=== PATIENT | male | born 1985 | race Caucasian/White ===

== ENCOUNTER 2017-11-23 19:27 | Inpatient (IN) ==
[2017-11-23] MEDS ORDERED: *HR* FentaNYL (PF) 100 MCG/2 ML VIAL IVP ONE (20:30)
[2017-11-23] MEDS ORDERED: Levofloxacin 750 MG/150 ML 750 MG/150 ML BAG IVPB ONE (20:30)
--- NOTE | 2017-11-23 20:33 | Emergency Department Note ---
Disposition Clinical Impression: Epididymo-orchitis Disposition: Admitted As Inpatient Condition: Undetermined General Adult HPI - General Chief complaint: ED Urogenital-Male Stated complaint: surgical site problem to testicle Time Seen by Provider: 11/23/17 20:12 Source: patient Mode of arrival: private vehicle Limitations: no limitations Nursing Notes Reviewed: Yes Vital Signs Reviewed: Yes - History of Present Illness HPI Narrative: 31-year-old patient presents emergency department for evaluation of scrotal pain and swelling after having a hydrocele surgery [address] Tobias through urology. Patient states initial relief of symptoms followed by increased swelling. He was seen by his urologist yesterday on 11/22 due to increased swelling, it is attributed to surgical swelling that was normal. Today however patient has had even more swelling with increased pain today came to the emergency department this morning for evaluation where he saw Dr. James. During workup with Dr. James patient was noted to have an elevated white blood cell count, and epididymal orchitis. Dr. James spoke with urologist Dr. Good who offered a choice of admission and urological service is alert to be discharged with by mouth antibiotics and follow up with urology and primary care provider. 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 Patient states since he left here this morning he has had a considerable amount of pain, he has used a scrotal support, took one of the Percocets that was ordered for him by urological services early this morning with minimal effectiveness. He does state that area has had minimal amount of drainage which is an increase from earlier this morning with Dr. James. Patient denies any other change in assessment since he was seen by Dr. James this morning. Denies fever, chills, nausea, vomiting, diarrhea, difficulty breathing, chest pain. Onset (ago): day(s) Location: other (Scrotum) Pain Severity: severe Pain Scale: 10 Consistency: constant Treatments Prior to Arrival: other - Related Data Home Medications Medication Instructions Recorded Confirmed Atenolol [Tenormin] 50 mg PO HS 11/17/17 11/17/17 Cyclobenzaprine [Flexeril] 10 mg PO HS PRN 11/17/17 11/17/17 Ibuprofen 800 mg PO TID PRN 11/17/17 11/17/17 Omeprazole [PriLOSEC] 40 mg PO DAILY 11/17/17 11/17/17 OxyCODONE/APAP 10/325 [Percocet 1 tab PO Q6H PRN 11/17/17 11/17/17 10/325 MG] Pregabalin [Lyrica] 100 mg PO TID 11/17/17 11/17/17 Previous Rx's Medication Instructions Recorded HYDROcodone/Acet 5/325 mg [Seibert 2 tab PO Q4H PRN 2 Days #12 tablet 11/17/17 5-325 mg] levoFLOXacin [Levaquin] 750 mg PO DAILY #9 tablet 11/23/17 Allergies Allergy/AdvReac Type Severity Reaction Status Date / Time No Known Allergies Allergy Verified 11/23/17 07:46 All systems ED: reviewed and negative except as stated. Review of Systems: As Per [facility] Past Medical History - Past Medical History Attestation: Yes The following information was validated with the patient. Source: patient Medical history: Reports: GERD, hyperlipidemia, hypertension, other Psychiatric history: Reports: no psych history - Social History Smoking Status: Current some day smoker Smokeless Tobacco Status: Yes Alcohol use: Reports: none Drug use: Reports: none Physical Exam - General Limitations: no limitations General appearance: alert, in no apparent distress - Head Head exam: atraumatic, normocephalic, normal inspection - Chest Chest inspection: Present: normal inspection, symmetric chest wall rise - Male exam: Present: scrotal swelling, other (Left testicle with surgical scar, right testicle with surgical drain with minimal amount of serous increase fluid) Scrotal exam: testicular tenderness: bilateral, testicular swelling: bilateral, testicular mass: right, epididymal tenderness: bilateral - Neurological Exam Neurological exam: Present: alert, oriented X3 - Psychiatric Psychiatric exam: Present: normal affect, normal mood - Skin Skin exam: Present: warm, dry, intact, normal color Course Course Narrative: 31-year-old male who is well-developed in no apparent distress. Respirations are easy and even. He ambulates with a steady gait was slightly bowed legs. Bilateral testicle swelling with right greater than left. Left with a we will approximate a surgical scar that is closed with sutures without signs of infection, surgical drain tube in place draining minimal amount of serosanguineous drainage. Right Teste the firm, bilateral testes tender with touch. Patient is afebrile, tachycardic most likely related to pain. We will treat pain and provide first dose of IV antibiotic preparation for [place] to hospital under urological services. - Consultations Consultation #1: Spoke with urologist Dr. Good who states initiated still remains at choice for patient as by mouth Levaquin versus IV Levaquin would both be effective. Dr. Good states the only benefit to admission would be bed rest, IV medication as diagnosis as are nonsurgical. Spoke with Dr. Good regarding patient desired to be admitted as this would help him not feel like he needs to be up and working, possibly stressing the situation. Dr. Good states patient to be admitted to hospital services. We do not need any new labs at this time his labs are from 0835 this morning. Time: 20:47 Vital Signs Temperature 98.3 F 11/23/17 19:28 Pulse Rate 121 11/23/17 19:28 Respiratory Rate 18 11/23/17 19:28 Blood Pressure 136/84 11/23/17 19:28 O2 Sat by Pulse Oximetry 98 11/23/17 19:28 Temperature 98.3 F 11/23/17 19:28 Pulse Rate 121 11/23/17 19:28 Respiratory Rate 18 11/23/17 19:28 Blood Pressure 136/84 11/23/17 19:28 O2 Sat by Pulse Oximetry 98 11/23/17 19:28 Oxygen Delivery Oxygen Delivery Room Air
--- NOTE | 2017-11-23 21:43 | Emergency Department Note ---
Disposition Clinical Impression: Epididymo-orchitis Disposition: Admitted As Inpatient Condition: Undetermined Forms: ED Satisfaction Letter General Adult HPI - General Chief complaint: ED Urogenital-Male Stated complaint: surgical site problem to testicle Time Seen by Provider: 11/23/17 20:12 Source: patient Mode of arrival: private vehicle Limitations: no limitations Nursing Notes Reviewed: Yes Vital Signs Reviewed: Yes - History of Present Illness Location: other (Scrotum) Pain Scale: 5 Treatments Prior to Arrival: other - Related Data Home Medications Medication Instructions Recorded Confirmed Atenolol [Tenormin] 100 mg PO HS 11/17/17 11/23/17 Cyclobenzaprine [Flexeril] 10 mg PO HS PRN 11/17/17 11/23/17 Ibuprofen 800 mg PO TID PRN 11/17/17 11/23/17 Omeprazole [PriLOSEC] 40 mg PO DAILY 11/17/17 11/23/17 OxyCODONE/APAP 10/325 [Percocet 1 tab PO Q6H PRN 11/17/17 11/23/17 10/325 MG] Pregabalin [Lyrica] 100 mg PO TID 11/17/17 11/23/17 Ranitidine HCl [Heartburn Relief] 150 mg PO DAILY 11/23/17 11/23/17 Allergies Allergy/AdvReac Type Severity Reaction Status Date / Time No Known Allergies Allergy Verified 11/23/17 07:46 Past Medical History - Past Medical History Medical history: Reports: GERD, hyperlipidemia, hypertension, other Psychiatric history: Reports: no psych history - Social History Smoking Status: Current some day smoker Smokeless Tobacco Status: Yes Alcohol use: Reports: none Drug use: Reports: none Physical Exam - General Limitations: no limitations General appearance: alert, in no apparent distress Course Vital Signs Temperature 98.3 F 11/23/17 19:28 Pulse Rate 121 11/23/17 19:28 Respiratory Rate 18 11/23/17 19:28 Blood Pressure 136/84 11/23/17 19:28 O2 Sat by Pulse Oximetry 98 11/23/17 19:28 Temperature 98.3 F 11/23/17 19:28 Pulse Rate 103 11/23/17 21:15 Respiratory Rate 18 11/23/17 21:15 Blood Pressure 137/83 11/23/17 21:15 O2 Sat by Pulse Oximetry 98 11/23/17 21:15 Oxygen Delivery Oxygen Delivery Room Air Attestation Statement - Attestation Attestation: I, Cuong Mancia MD, personally evaluated this patient and discussed their management with the resident physician. I reviewed the resident's note and agree with the documented findings, medical decision making, and plan of care. Patient is a 31-year-old male who had left hydrocele surgery 6 days ago and presents tonight complaining of increasing pain and swelling in the scrotum over the past 4 days. He has been able to urinate but some dysuria. No fever. He was seen earlier today in the emergency department and had labs and an ultrasound which was suggestive of epididymoorchitis. He elected to try outpatient antibiotics but returns tonight complaining of increasing pain and swelling. On examination patient is a well-developed obese male in no acute distress. He is alert and oriented 3. There is no cyanosis or diaphoresis. Breath sounds are clear and equal bilaterally. Heart regular with a mild tachycardia. Abdomen soft and nontender with normal bowel sounds. Few scrotal swelling and tenderness. The mid-level provider discussed with the urologist network operations specialist, Dr. Good, and he accepted admission of the patient to the urology service.
[2017-11-23] MEDS ORDERED: Naloxone 0.4 MG/ML INJ IVP PRN (22:16)
[2017-11-23] MEDS ORDERED: Ondansetron 4 MG/2 ML VIAL IVP PRN (22:16)
--- NOTE | 2017-11-23 22:23 | Urology History & Physical ---
Date of Encounter: 11/24/17 Time of Encounter: 22:20 Assessment and Plan (1) Orchitis and epididymitis Current Visit: Yes Status: Acute I feel that a majority of the scrotal swelling is scrotal wall edema. no evidence of hematoma, recurrance hydrocele or abscess. plan - start rocephin BID, bed rest. strict scrotal rest. monitor exam for improvement. no obvious surgical intervention at this time. will discuss with Jatinder. consider removal of drain. History of Present Illness Chief complaint: scrotal swelling HPI: Mr. Marin is a 31 year old male s/p recent hydrocelectomy by Dr Tobias. Increasing pain and swelling. no fever. 2 ER visits within 12 hours. ultrasound shows large scrotal wall edema and epididymorchitis. no troule urinating. minimal drain output. Past Med Surg Social Fam HX - Past Medical History Medical history: GERD, hyperlipidemia, hypertension, other Psychiatric history: no psych history - Social History Smoking Status: Current some day smoker Smokeless Tobacco Status: Yes Alcohol use: none Drug use: none Medications and Allergies Atenolol [Tenormin] 100 mg PO HS 11/17/17 [History] Cyclobenzaprine [Flexeril] 10 mg PO HS PRN 11/17/17 [History] Ibuprofen 800 mg PO TID PRN 11/17/17 [History] Omeprazole [PriLOSEC] 40 mg PO DAILY 11/17/17 [History] OxyCODONE/APAP 10/325 [Percocet 10/325 MG] 1 tab PO Q6H PRN 11/17/17 [History] Pregabalin [Lyrica] 100 mg PO TID 11/17/17 [History] Ranitidine HCl [Heartburn Relief] 150 mg PO DAILY 11/23/17 [History] 3 Allergy/AdvReac Type Severity Reaction Status Date / Time No Known Allergies Allergy Verified 11/23/17 07:46 Review of Systems - Constitutional no fever(s) - EENT Nose, mouth and throat: no dizziness, no sore throat - Cardiovascular no chest pain - Respiratory no cough - Gastrointestinal abdominal pain, nausea, no vomiting - Genitourinary scrotal swelling - Musculoskeletal back pain - Integumentary swelling, no erythema - Neurological no confusion - Psychiatric no anxiety - Hematologic/Lymphatic no easy bleeding - Allergic/Immunologic no throat swelling Exam Initial Vital Signs Temp Pulse Resp BP Pulse Ox 98.3 F 121 18 136/84 98 11/23/17 19:28 11/23/17 19:28 11/23/17 19:28 11/23/17 19:28 11/23/17 19:28 - General physical appearance Present: well developed, no distress - Eyes Present: PERRL, conjunctiva is clear - ENT Present: normal nares - Neck Present: no masses - Respiratory Present: normal respiratory effort - Cardiovascular Cardiovascular exam IM: RRR - Abdomen Abdomen: Present: soft. Absent: suprapubic tenderness - Neurologic Present: normal coordination. Absent: disoriented, confused - Additional Findings large scrotal edema. firmer skin on left. soft on right. incision intact with scant drainage. no purulence. drain still in place with no drainage. testicle not palpable bc of edema. Urology Results - Labs All other labs normal.
[2017-11-23] MEDS: Ketorolac 15 MG/ML VIAL IVP PRN (22:40)
[2017-11-23] MEDS: *HR* HYDROcodone/Acet 5/325 mg TABLET PO PRN (22:41)
[2017-11-23] MEDS: *HR* OxyCODONE Immed Rel 5 MG TABLET PO PRN (23:25)
[2017-11-24] MEDS: *HR* HYDROcodone/Acet 5/325 mg TABLET PO PRN ×3 (04:44→20:40)
[2017-11-24] MEDS: Ketorolac 15 MG/ML VIAL IVP PRN ×3 (04:44→20:40)
[2017-11-24] MEDS: *HR* OxyCODONE Immed Rel 5 MG TABLET PO PRN ×2 (06:03→15:12)
[2017-11-24 07:58] LABS: Basophils % 0.2 %; Eosinophils # 0.1 K/mcL (0.0-0.6); Eosinophils % 0.8 %; Hematocrit 37.3 % (37.5-50.1); Hemoglobin 12.3 g/dL (12.9-16.9); Immature Granulocytes % 0.5 % (0-4); Lymphocytes % 6.5 %; Mean Corpuscular Hemoglobin 28.8 pg (28.0-33.3); Mean Corpuscular Volume 87.4 fL (83.0-100.0); Mean Platelet Volume 10.6 fL (9.4-12.4); Monocytes # 1.7 K/mcL (0.0-1.3); Monocytes % 10.6 %; Platelet Count 219 K/mcL (140-400); Red Blood Count 4.27 M/mcL (4.19-5.50); Red Cell Distribution Width 13.1 % (11.5-14.5); Segmented Neutrophils % 81.4 %
[2017-11-24] MEDS: cefTRIAXone 1,000 MG in Water for inj. (sterile) 20 ML 10 ML IVP SCH ×2 (08:37→20:37)
[2017-11-24] MEDS ORDERED: cefTRIAXone 1,000 MG in Water for inj. (sterile) 20 ML 10 ML IVP SCH (09:00)
[2017-11-24] MEDS: *HR* HYDROmorphone 2 MG TABLET PO PRN ×2 (09:59→16:56)
[2017-11-24] MEDS: Pregabalin 50 MG CAPSULE PO SCH (20:39)
[2017-11-25] MEDS: *HR* OxyCODONE Immed Rel 5 MG TABLET PO PRN ×3 (04:07→21:28)
--- NOTE | 2017-11-25 07:11 | Urology Progress Note ---
Date of Encounter: 11/25/17 Time of Encounter: 07:08 - Assessment and Plan (1) Orchitis and epididymitis Current Visit: Yes Status: Acute Assessment and plan: continue iv abx. scrotal elevation. no indication for I and D at this time. Progress Note Narrative: patient seen. still with some scrotal pain. no fevers. Objective Initial Vital Signs Temp Pulse Resp BP Pulse Ox 98.3 F 121 18 136/84 98 11/23/17 19:28 11/23/17 19:28 11/23/17 19:28 11/23/17 19:28 11/23/17 19:28 - General physical appearance Present: well developed, well nourished - Respiratory Present: normal expansion, normal respiratory effort - Abdomen Present: soft - Genitourinary Present: other (scrotal swelling and edema improved. no fluctuance noted. drain removed. ) - Labs 11/24/17 07:31 Consult Discharge Plan - Plan Referrals: Nani Blankenship [Primary Care Provider] -
[2017-11-25] MEDS: Pregabalin 50 MG CAPSULE PO SCH ×3 (09:28→21:30)
[2017-11-25] MEDS: cefTRIAXone 1,000 MG in Water for inj. (sterile) 20 ML 10 ML IVP SCH ×2 (09:28→21:30)
[2017-11-25] MEDS: *HR* HYDROmorphone 2 MG TABLET PO PRN (09:38)
[2017-11-25] MEDS: Ketorolac 15 MG/ML VIAL IVP PRN (13:48)
[2017-11-26] MEDS: *HR* OxyCODONE Immed Rel 5 MG TABLET PO PRN ×4 (03:42→22:49)
[2017-11-26] MEDS: Ketorolac 15 MG/ML VIAL IVP PRN ×4 (03:44→22:49)
--- NOTE | 2017-11-26 07:16 | Urology Progress Note ---
Date of Encounter: 11/26/17 Time of Encounter: 07:14 - Assessment and Plan (1) Orchitis and epididymitis Current Visit: Yes Status: Acute Assessment and plan: will recheck labs and UA. continue current management of ABX, bedrest. Progress Note Narrative: pt still having pain. very little improvement. states urine "lopez" and "smells" Looks dark Objective Initial Vital Signs Temp Pulse Resp BP Pulse Ox 98.3 F 121 18 136/84 98 11/23/17 19:28 11/23/17 19:28 11/23/17 19:28 11/23/17 19:28 11/23/17 19:28 - Additional Exam still with significant swelling of scrotum. no appreciable change from yesterday. - Labs 11/24/17 07:31 Consult Discharge Plan - Plan Referrals: Nani Blankenship [Primary Care Provider] -
[2017-11-26] MEDS: Pregabalin 50 MG CAPSULE PO SCH ×3 (07:59→20:17)
[2017-11-26] MEDS: *HR* HYDROcodone/Acet 5/325 mg TABLET PO PRN ×3 (07:59→20:17)
[2017-11-26] MEDS: cefTRIAXone 1,000 MG in Water for inj. (sterile) 20 ML 10 ML IVP SCH ×2 (08:00→20:15)
[2017-11-26 08:12] LABS: Basophils % 0.2 %; Eosinophils # 0.2 K/mcL (0.0-0.6); Eosinophils % 1.2 %; Hematocrit 34.8 % (37.5-50.1); Immature Granulocytes % 0.8 % (0-4); Lymphocytes # 1.5 K/mcL (0.6-4.6); Lymphocytes % 11.6 %; Mean Corpuscular HGB Conc 34.5 g/dL (31.6-35.5); Monocytes % 7.8 %; Neutrophils # 10.4 K/mcL (1.6-8.9); Platelet Count 286 K/mcL (140-400); Red Cell Distribution Width 12.8 % (11.5-14.5); Segmented Neutrophils % 78.4 %
[2017-11-26 09:05] LABS: BUN/Creatinine Ratio 26 (6-26); Blood Urea Nitrogen 21 mg/dL (6-20); Calcium 9.2 mg/dL (8.6-10.3); Carbon Dioxide 27 mEq/L (23-29); Chloride 104 mEq/L (98-107); Glucose 101 mg/dL (70-105); Osmolality,Calculated 289 (280-300); Potassium 4.1 mEq/L (3.5-5.1); Sodium 138 mEq/L (136-145); eGFR For African Americans > 60 (> 60); eGFR For Non-African Americans > 60 (> 60)
[2017-11-27] MEDS: *HR* OxyCODONE Immed Rel 5 MG TABLET PO PRN (05:46)
[2017-11-27] MEDS: Ketorolac 15 MG/ML VIAL IVP PRN (05:49)
[2017-11-27 06:09] LABS: Bilirubin,Urine Negative (Negative); Blood,Urine Negative (Negative); Clarity,Urine Clear (Clear); Color,Urine Yellow (Yellow); Glucose,Urine (UA) Normal (Normal); Ketones,Urine Negative (Negative); Leukocyte Esterase,Urine Negative (Negative); Nitrite,Urine Negative (Negative); PH,Urine 6.5 pH Units (5.0-8.0); Protein,Urine Trace mg/dL (Neg-Trace); Specific Gravity,Urine > 1.030 (1.010-1.025); Urobilinogen,Urine Normal (Normal)
[2017-11-27 06:11] LABS: Bacteria,Urine None Seen per hpf (None-Few); Hyaline Casts,Urine None Seen per lpf (None-Few); RBC,Urine 0-3 per hpf (0-3); Squamous Epithelial Cell,Urine None Seen per lpf (None-Few); WBC,Urine 0-3 per hpf (0-3)
[2017-11-27 07:23] VITALS: BP 132/81
--- NOTE | 2017-11-27 08:06 | Discharge Summary ---
Date of Encounter: 11/27/17 Time of Encounter: 08:11 - Discharge Diagnosis (1) Orchitis and epididymitis Priority: Primary Status: Acute Comments: slowly resolving. based on labs and exam. ok for outpatient management - Hospital Course Hospital course: Mr. Marin is a 31 year old male admitted with epididymitis/orchitis. WBC at admission 13. down to 11. no fever. BMP normal. pain control and exam slowly improving. we have elected for outpatient management with levaquin and bed rest. will follow closely next week with [facility] - Time Spent with Patient Total time spent providing and/or coordinating discharge services: Labs on day of discharge: Labs from last 24 hours 11/27/17 11/26/17 11/26/17 05:50 07:54 07:54 WBC 13.2 H RBC 4.00 L Hgb 12.0 L Hct 34.8 L MCV 87.0 MCH 30.0 MCHC 34.5 RDW 12.8 Plt Count 286 MPV 10.0 Immature Gran % 0.8 Seg Neutrophils % 78.4 Lymphocytes % 11.6 Monocytes % 7.8 Eosinophils % 1.2 Basophils % 0.2 Neutrophils # 10.4 H Lymphocytes # 1.5 Monocytes # 1.0 Eosinophils # 0.2 Basophils # 0.0 Sodium 138 Potassium 4.1 Chloride 104 Carbon Dioxide 27 BUN 21 H Creatinine 0.80 Est GFR ( Amer) > 60 Est GFR (Non-Af Amer) > 60 BUN/Creatinine Ratio 26 Glucose 101 Calculated Osmolality 289 Calcium 9.2 Urine Color Yellow Urine Clarity Clear Urine pH 6.5 Ur Specific [place] > 1.030 H Urine Protein Trace Urine Glucose (UA) Normal Urine Ketones Negative Urine Blood Negative Urine Nitrite Negative Urine Bilirubin Negative Urine Urobilinogen Normal Ur Leukocyte Esterase Negative Urine Microscopic RBC 0-3 Urine Microscopic WBC 0-3 Ur Squamous Epith Cells None Seen Urine Bacteria None Seen Hyaline Casts None Seen Ur Culture Indicated? NO - Discharge Medications Prescriptions: Levofloxacin [Levaquin] 750 mg PO DAILY #14 tablet OxyCODONE/APAP 10/325 [Percocet 10/325 MG] 1 tab PO Q6H PRN 7 Days #30 tablet PRN Reason: Mild To Moderate Pain Home Medications: Atenolol [Tenormin] 100 mg PO DAILY 11/17/17 [History] Ibuprofen 800 mg PO TID PRN 11/17/17 [History] Omeprazole [PriLOSEC] 40 mg PO DAILY 11/17/17 [History] Ranitidine HCl [Heartburn Relief] 150 mg PO BID PRN 11/23/17 [History] Pregabalin [Lyrica] 100 mg PO TID 11/24/17 [History] Levofloxacin [Levaquin] 750 mg PO DAILY #14 tablet 11/27/17 [Rx] Omeprazole [PriLOSEC] 40 mg PO DAILY@0730 capsule. 11/27/17 [Rx] OxyCODONE/APAP 10/325 [Percocet 10/325 MG] 1 tab PO Q6H PRN 7 Days #30 tablet [Rx] Allergies/Adverse Reactions: 3 Allergy/AdvReac Type Severity Reaction Status Date / Time No Known Allergies Allergy Verified 11/23/17 07:46 Date of admission: 11/23/17 22:04 Primary care physician: Nani Blankenship Discharging clinician: Justin Good Anticipated date of discharge: 11/27/17 Exam Initial Vital Signs Temp Pulse Resp BP Pulse Ox 98.3 F 121 18 136/84 98 11/23/17 19:28 11/23/17 19:28 11/23/17 19:28 11/23/17 19:28 11/23/17 19:28 - General physical appearance Present: no distress - Additional Findings still with scrotal swelling. small improvement. firm left hemiscrotum. no purulence. - Patient Status Disposition: Home, Self-Care Condition: Good Functional capacity at discharge: independent ambulation Overall status at discharge: patient is not back to baseline - Discharge Instructions Follow Up With: Nani Blankenship [Primary Care Provider] - Casey Tobias MD [Partnered Physician] - (December 01 with Jatinder. ) Additional Instructions: pt needs mostly bed rest. small amount ambulating OK. keep scrotum well supported at all times. cool compress daily. OK to take ibuprofen. low grade fever is possible. call or go to ER for fever >101. - Diet and Activity Activity: other Diet: advance to your usual diet
== END 2017-11-27 09:58 | disposition home or self-care (01) | DRG 501 ==
LOC: EMEROO 19:27 → 3ANU 19:27
PROVIDERS: ADMIT Urology; ATTEND Urology

== ENCOUNTER 2022-01-20 16:11 | Inpatient (IN) ==
[2022-01-20 17:47] LABS: Basophils # 0.1 K/mcL (0.0-0.2); Basophils % 0.7 %; Eosinophils # 0.1 K/mcL (0.0-0.6); Eosinophils % 0.9 %; Hematocrit 44.7 % (37.5-50.1); Hemoglobin 14.8 g/dL (12.9-16.9); Immature Granulocytes % 0.9 % (0-4); Lymphocytes # 1.2 K/mcL (0.6-4.6); Lymphocytes % 11.7 %; Mean Corpuscular HGB Conc 33.1 g/dL (31.6-35.5); Mean Corpuscular Hemoglobin 31.4 pg (28.0-33.3); Mean Corpuscular Volume 94.7 fL (83.0-100.0); Mean Platelet Volume 10.5 fL (9.4-12.4); Monocytes # 0.8 K/mcL (0.0-1.3); Monocytes % 7.9 %; Neutrophils # 8.2 K/mcL (1.6-8.9); Platelet Count 254 K/mcL (140-400); Red Blood Count 4.72 M/mcL (4.19-5.50); Red Cell Distribution Width 13.3 % (11.5-14.5); Segmented Neutrophils % 77.9 %; White Blood Count 10.4 K/mcL (4.3-11.1)
[2022-01-20 18:10] LABS: BUN/Creatinine Ratio 11 (6-26); Blood Urea Nitrogen 11 mg/dL (6-20); Calcium 9.6 mg/dL (8.6-10.3); Carbon Dioxide 26 mEq/L (23-29); Chloride 101 mEq/L (98-107); Glucose 109 mg/dL (70-105); Osmolality,Calculated 288 (280-300); Potassium 3.6 mEq/L (3.5-5.1); Sodium 139 mEq/L (136-145); Troponin I 0.04 ng/mL (< 0.04); eGFR For African Americans > 60 (> 60); eGFR For Non-African Americans > 60 (> 60)
[2022-01-20] MEDS ORDERED: Iopamidol - 370 500 ML MLS IVP ONE (18:23)
[2022-01-20] MEDS ORDERED: *HR* Labetalol 20 MG/4 ML SYRINGE IVP ONE (18:24)
[2022-01-20 18:57] LABS: Alanine Aminotransferase 91 Units/L (7-52); Albumin 4.5 g/dL (3.5-5.7); Albumin/Globulin Ratio 1.7 (1.1-2.2); Alkaline Phosphatase 90 Units/L (34-104); Aspartate Amino Transferase 43 Units/L (13-39); Bilirubin,Direct 0.1 mg/dL (0.0-0.2); Bilirubin,Indirect 0.6 mg/dL (0.0-1.0); Bilirubin,Total 0.7 mg/dL (0.3-1.0); Globulin 2.6 g/dL (2.4-3.5); Lipase 12 Units/L (11-82); Total Protein 7.1 g/dL (6.4-8.9)
[2022-01-20] MEDS: Nitroglycerin 0.4 MG TAB.SUBL SL PRN ×2 (18:57→19:02)
[2022-01-20] MEDS ORDERED: Aspirin 81 MG TAB.CHEW PO ONE (19:38)
[2022-01-20] MEDS ORDERED: *HR* Heparin 5,000 UNIT/ML VIAL IVP ONE (19:53)
[2022-01-20] MEDS ORDERED: *HR* Ticagrelor 90 MG TABLET ONE (19:53)
[2022-01-20] MEDS ORDERED: *HR* Heparin 5,000 UNIT/ML VIAL ONE (19:53)
[2022-01-20] MEDS ORDERED: *HR* Heparin 5,000 UNIT/ML VIAL IVP PRN ×2 (19:53)
[2022-01-20] MEDS ORDERED: *HR* Ticagrelor 90 MG TABLET PO ONE (19:53)
[2022-01-20] MEDS ORDERED: 0.9 % Sodium Chloride 1,000 ML ONE (19:54)
[2022-01-20] MEDS ORDERED: *HR* Heparin 10,000 UNIT/10 ML VIAL ONE (20:17)
[2022-01-20] MEDS ORDERED: 0.9 % Sodium Chloride 2,000 ML ONE (20:17)
[2022-01-20] MEDS ORDERED: Nitroglycerin 1,000 MCG/5 ML VIAL IV ONE (20:17)
[2022-01-20] MEDS ORDERED: Iopamidol - 370 200 ML INFUS..BTL ONE ×2 (20:17→20:50)
[2022-01-20] MEDS ORDERED: Heparin 1,000 UNITS/500 mL 500 ML ONE (20:17)
[2022-01-20 20:23] LABS: Heparin anti-factor XA UFH 0.04 IU/mL (0.30-0.70)
[2022-01-20 20:24] LABS: Prothrombin Time 11.3 Seconds (9.4-12.1)
[2022-01-20] MEDS ORDERED: *HR* Midazolam HCl 2 MG/2 ML VIAL ONE (20:25)
[2022-01-20] MEDS ORDERED: *HR* FentaNYL (PF) 100 MCG/2 ML VIAL ONE (20:25)
[2022-01-20] MEDS ORDERED: Tirofiban 12.5 MG/250ML 12.5 MG/250 ML BAG ONE (20:48)
[2022-01-20] MEDS ORDERED: Furosemide 40 MG/4 ML VIAL ONE (21:15)
[2022-01-20] MEDS: Tirofiban 12.5 MG/250ML 12.5 MG/250 ML BAG IVC SCH (21:30)
[2022-01-20] MEDS ORDERED: Perflutren Lipid Microsphere 1.3 ML in 0.9 % Sodium Chloride 8.7 ML IVP PRN (21:31)
[2022-01-20] MEDS: Heparin 25,000UNIT/250ML 1/2NS 25,000 UNIT/250 ML IV.SOLN IVC SCH (22:22)
[2022-01-21] MEDS ORDERED: *HR* LORazepam 2 MG/ML VIAL IVP PRN ×3 (00:45→10:46)
[2022-01-21] MEDS ORDERED: *HR* Metoprolol 5 MG/5 ML VIAL IVP ONE (00:45)
[2022-01-21] MEDS: Tirofiban 12.5 MG/250ML 12.5 MG/250 ML BAG IVC SCH (03:30)
[2022-01-21 05:23] LABS: VBG Ionized Calcium 1.03 mmol/L (1.15-1.35)
[2022-01-21 05:45] LABS: Basophils % 0.4 %; Eosinophils # 0.1 K/mcL (0.0-0.6); Eosinophils % 0.7 %; Hematocrit 41.9 % (37.5-50.1); Hemoglobin 13.7 g/dL (12.9-16.9); Immature Granulocytes % 0.7 % (0-4); Lymphocytes # 1.4 K/mcL (0.6-4.6); Lymphocytes % 12.8 %; Mean Corpuscular HGB Conc 32.7 g/dL (31.6-35.5); Mean Corpuscular Hemoglobin 31.3 pg (28.0-33.3); Mean Corpuscular Volume 95.7 fL (83.0-100.0); Mean Platelet Volume 10.1 fL (9.4-12.4); Monocytes % 9.1 %; Neutrophils # 8.2 K/mcL (1.6-8.9); Platelet Count 236 K/mcL (140-400); Red Blood Count 4.38 M/mcL (4.19-5.50); Red Cell Distribution Width 13.3 % (11.5-14.5); Segmented Neutrophils % 76.3 %; White Blood Count 10.7 K/mcL (4.3-11.1)
[2022-01-21 06:36] LABS: BUN/Creatinine Ratio 12 (6-26); Blood Urea Nitrogen 10 mg/dL (6-20); Carbon Dioxide 29 mEq/L (23-29); Chloride 99 mEq/L (98-107); Glucose 93 mg/dL (70-105); Osmolality,Calculated 285 (280-300); Potassium 3.4 mEq/L (3.5-5.1); Sodium 138 mEq/L (136-145); eGFR For African Americans > 60 (> 60); eGFR For Non-African Americans > 60 (> 60)
[2022-01-21] MEDS ORDERED: Nitroglycerin 0.4 MG PATCH.TD24 TD SCH (07:30)
[2022-01-21] MEDS ORDERED: carvediloL 6.25 MG TABLET PO SCH (08:00)
[2022-01-21] MEDS: Thiamine (B-1) 100 MG TABLET PO SCH (08:12)
[2022-01-21] MEDS: Folic Acid 1 MG TABLET PO SCH (08:12)
[2022-01-21] MEDS: *HR* Ticagrelor 90 MG TABLET PO SCH ×2 (08:12→20:05)
[2022-01-21] MEDS: Vitamin B Complex/Vit C/Vit E 1 EACH TABLET PO SCH (08:12)
[2022-01-21] MEDS: Aspirin 81 MG TAB.CHEW PO SCH (08:43)
[2022-01-21] MEDS ORDERED: lisinopriL 5 MG TABLET PO SCH (09:00)
[2022-01-21] MEDS ORDERED: carvediloL 6.25 MG TABLET PO ONE (10:11)
[2022-01-21 11:17] LABS: Thyroid Stimulating Hormone 1.057 mcIU/mL (0.340-5.600)
[2022-01-21 11:50] LABS: Estimated Average Glucose 108 mg/dl; Hemoglobin A1C 5.4 %
[2022-01-21] MEDS ORDERED: Furosemide 40 MG/4 ML VIAL IVP ONE (12:50)
[2022-01-21] MEDS: carvediloL 6.25 MG TABLET PO SCH (16:16)
[2022-01-21] MEDS: Spironolactone 25 MG TABLET PO SCH (16:16)
[2022-01-22] MEDS: Heparin 25,000UNIT/250ML 1/2NS 25,000 UNIT/250 ML IV.SOLN IVC SCH (03:51)
[2022-01-22 04:20] VITALS: TEMP 97.5
[2022-01-22 05:05] LABS: Basophils # 0.1 K/mcL (0.0-0.2); Basophils % 0.5 %; Eosinophils # 0.1 K/mcL (0.0-0.6); Eosinophils % 1.1 %; Hematocrit 42.1 % (37.5-50.1); Hemoglobin 13.9 g/dL (12.9-16.9); Immature Granulocytes % 0.9 % (0-4); Lymphocytes # 1.6 K/mcL (0.6-4.6); Lymphocytes % 15.7 %; Mean Corpuscular Hemoglobin 31.8 pg (28.0-33.3); Mean Corpuscular Volume 96.3 fL (83.0-100.0); Monocytes # 0.9 K/mcL (0.0-1.3); Monocytes % 8.7 %; Neutrophils # 7.5 K/mcL (1.6-8.9); Platelet Count 207 K/mcL (140-400); Red Blood Count 4.37 M/mcL (4.19-5.50); Red Cell Distribution Width 13.5 % (11.5-14.5); Segmented Neutrophils % 73.1 %; White Blood Count 10.2 K/mcL (4.3-11.1)
[2022-01-22 05:18] LABS: VBG Ionized Calcium 1.06 mmol/L (1.15-1.35)
[2022-01-22 05:25] LABS: BUN/Creatinine Ratio 17 (6-26); Blood Urea Nitrogen 14 mg/dL (6-20); Carbon Dioxide 28 mEq/L (23-29); Chloride 101 mEq/L (98-107); Glucose 102 mg/dL (70-105); Magnesium 2.1 mg/dL (1.6-2.6); Osmolality,Calculated 285 (280-300); Phosphorous 4.8 mg/dL (2.7-4.5); Potassium 3.5 mEq/L (3.5-5.1); Sodium 137 mEq/L (136-145); eGFR For African Americans > 60 (> 60); eGFR For Non-African Americans > 60 (> 60)
[2022-01-22 07:51] VITALS: BP 138/89; PULSE 79; O2SAT 95
[2022-01-22] MEDS: Thiamine (B-1) 100 MG TABLET PO SCH (08:48)
[2022-01-22] MEDS: Folic Acid 1 MG TABLET PO SCH (08:48)
[2022-01-22] MEDS: Aspirin 81 MG TAB.CHEW PO SCH (08:48)
[2022-01-22] MEDS: Spironolactone 25 MG TABLET PO SCH (08:49)
[2022-01-22] MEDS: Vitamin B Complex/Vit C/Vit E 1 EACH TABLET PO SCH (08:49)
[2022-01-22] MEDS: carvediloL 6.25 MG TABLET PO SCH (08:50)
== END 2022-01-22 11:33 | disposition home or self-care (01) | DRG 174 ==
LOC: ICNU 16:11 → EMEROOARM 16:11 → ICNU 20:31
PROVIDERS: ADMIT Internal Medicine Cardiovascular Disease; ATTEND Internal Medicine Cardiovascular Disease